=== PATIENT | male | born 1970 | race Caucasian/White ===

== ENCOUNTER 2016-09-24 12:06 | Emergency (ER) | payer MEDICAID ==
[2016-09-24 12:13] VITALS: RESP 16; TEMP 98.4; O2SAT 96
--- NOTE | 2016-09-24 13:40 | EDPHY ---
H & P Time Seen by Provider: 09/24/16 13:00 HPI/ROS: HPI Mechanical fall. Back pain. 46-year-old male on foot. Patient works at the [employer]. He reports he was at work last night. He reports that he slipped on a wet floor landing on his left buttock. He complains primarily of left-sided lower back pain. He did complain of some left shoulder pain but states that is better at this time. He denies any numbness or weakness in his lower extremities. No bowel or bladder incontinence. No history of malignancy. No fever. No abdominal pain. ROS: Constitutional: No fever, no chills. No weakness. Eyes: No discharge. No changes in vision. ENT: No sore throat. No nasal congestion or rhinorrhea. Respiratory: No cough. No shortness of breath. Cardiac: No chest pain, no palpitations. Gastrointestinal: No abdominal pain, no vomiting, no diarrhea. Genitourinary: No hematuria. No dysuria or increased frequency with urination. Musculoskeletal: As above. No neck pain. Denies other extremity pain the noted. Skin: No rashes. Neurological: No headache. No focal weakness or altered sensation. Past medical history: Hepatitis-C. Social history: Here by himself. Physical Exam: General Appearance: Alert, no distress. This patient is responding to questions appropriately and in full sentences. This patient appears well- hydrated and well-nourished. Eyes: Pupils equal and round no pallor or injection. No lid edema, erythema or injection. Lower back exam: No midline cervical, thoracic, lumbar, sacral tenderness on palpation. He has got some mild and vague tenderness over the left sacroiliac joint. No soft tissue swelling, no ecchymosis, no erythema or warmth associated. He has a negative same side and cross side straight leg raise test. He is neurologically intact in all myotomes in dermatomes of the bilateral lower extremities. He is vascularly intact in the lower extremities. Left shoulder exam: Ranges freely without any significant pain or impingement in all planes of motion and rotation. Left upper extremity is neurovascularly intact. Axillary nerve distribution is intact. Respiratory: There are no retractions, lungs are clear to auscultation with good air movement bilaterally. Gastrointestinal: Abdomen is soft and nontender, no masses, bowel sounds normal. No focal tenderness at Burney's point. No Wise sign. Neurological: Motor sensory function is grossly intact. Cranial nerves are normal. Gait is normal. Skin: Warm and dry, no rashes. Musculoskeletal: Neck is supple and nontender. Extremities are symmetrical. All joints range without pain or impingement. Psychiatric: No agitation. No depression. Database: EKG: Imaging: Procedures: Emergency department course: No red flags on examination. Ground level fall with left-sided lower back pain. Recommended treatment with ibuprofen, 600 mg every 6 hours for the next 3 days. Follow up with primary care physician for re-evaluation in 2-3 days. Return to emergency department precautions were discussed with him. All of his questions were answered. He was discharged in good condition. Differential Diagnosis: The differential diagnosis on this patient includes but is not limited to lumbar sacral strain on the left side. Epidural compression syndrome, acute radiculopathy/sciatica, AAA, malignancy, epidural abscess unlikely. This represents a partial list of diagnoses considered. These considerations are based on history, physical exam, past history, reassessment and diagnostic testing. Smoking Status: Current every day smoker Constitutional: Initial Vital Signs Temperature (C) 36.9 C 09/24/16 12:10 Heart Rate 90 09/24/16 12:10 Respiratory Rate 16 09/24/16 12:10 Blood Pressure 124/82 H 09/24/16 12:10 O2 Sat (%) 96 09/24/16 12:10 O2 Delivery Mode Room Air Allergies/Adverse Reactions: Penicillins Allergy (Unknown, Verified 09/24/16 12:09) Home Medications: Medication Instructions Recorded Amitriptyline HCl [Elavil 10 mg 10 mg PO 09/24/16 (*)] MDM/Departure - Depart Disposition: Home, Routine, Self-Care Clinical Impression: Fall from ground level, Low back pain Condition: Good Instructions: Low Back Strain (ED) Additional Instructions: Read and follow provided instructions. Follow-up with your primary care physician in 1-2 days for re-evaluation. Ibuprofen dosin mg every 6 hours with meals for the next 3 days only. Return to the emergency department for worsening pain, bowel or bladder incontinence, numbness or weakness in her lower extremities, persistent pain greater than 3 days or other serious concerns. Referrals: NONE *PRIMARY CARE P,. [Primary Care Provider] - As per Instructions [facility] [Outside] - As per Instructions
[2016-09-24] MEDS ORDERED: IBUPROFEN 200 MG TAB PO ONE (13:42)
[2016-09-24 14:04] VITALS: BP 127/78; PULSE 92
== END 2016-09-24 14:03 | disposition home or self-care (01) ==
DX: S39.92XA Unspecified injury of lower back, initial encounter (principal); F17.200 Nicotine dependence, unspecified, uncomplicated; W01.0XXA Fall on same level from slipping, tripping and stumbling without subsequent striking against object, initial encounter; Y92.511 Restaurant or cafe as the place of occurrence of the external cause; Y99.0 Civilian activity done for income or pay; Y93.89 Activity, other specified

== ENCOUNTER 2016-11-04 16:56 | Emergency (ER) | payer MEDICAID ==
--- NOTE | 2016-11-04 19:29 | EDPHY ---
H & P Stated Complaint: R scapula injury/pain from washing dishes at work HPI/ROS: CHIEF COMPLAINT: right scapula pain HISTORY OF PRESENT ILLNESS: Doing dishes earlier today when he felt a sudden onset of severe pain in the right scapula. This is primarily over the inferior angle of the scapula. It is worse with any kind of palpation, movement, retraction or protraction of the scapula. Improves with rest.Does not radiate. There is no chest pain or shortness of breath. No fall or trauma. No injury of any kind. No other associated complaints or modifying factors. PRIOR ORTHO INJURIES: None ESTABLISHED ORTHOPEDIST: none REVIEW OF SYSTEMS: Ten systems reviewed and are negative unless otherwise noted in the HPI EXAMINATION General Appearance: Alert, no distress Head: normocephalic, atraumatic Eyes: Pupils equal and round, no conjunctival pallor or injection ENT, Mouth: Mucous membranes moist Neck: Normal inspection Respiratory: No dyspnea or retractions. No distress Cardiovascular: Pulses normal throughout. Brisk cap refill Gastrointestinal: No distention Back: no midline tenderness. There is tenderness on the right scapula on the inferior angle. No crepitus or deformity. Pain is primarily over the subscapular and rhomboid muscles. Neurological: A&O, sensory symmetric, strength symmetric Skin: Warm and dry, no rash Extremities: Nontender, no pedal edema Psychiatric: Mood and affect normal MDM: 7:15 p.m. severe right scapular pain without any significant trauma. He does have point tenderness of the inferior angle of the scapula. I have ordered a x-ray to examine. I do not expect to find any fracture or abnormality. He has no chest complaints of any kind and no shortness of breath. 8:00 p.m. acute strain of the right thoracic region involving the subscapular versus rhomboid muscles. There is no bony abnormality on x-ray. He is neuro intact with full range of motion about the shoulder girdle. Discharge home with orthopedic follow-up, Flexeril and ibuprofen. Patient is comfortable with this plan. ED Precautions: Worsening pain. Erythema, edema, cyanosis, pallor, paresthesia or anesthesia. SUPERVISION:This patient was independently evaluated without the aide of supervising physician. Source: Patient - Personal History Current Tetanus Diphtheria and Acellular Pertussis (TDAP): Yes Tetanus Vaccine Date: 2011 - Medical/Surgical History Hx Asthma: No Hx Chronic Respiratory Disease: No Hx Diabetes: No Hx Cardiac Disease: No Hx Renal Disease: No Hx Cirrhosis: No Hx Alcoholism: No Hx HIV/AIDS: No Hx Splenectomy or Spleen Trauma: No Other PMH: none - Social History Smoking Status: Current every day smoker Constitutional: Initial Vital Signs Temperature (C) 98.4 F 11/04/16 17:05 Heart Rate 92 11/04/16 17:05 Respiratory Rate 16 11/04/16 17:05 Blood Pressure 116/72 11/04/16 17:05 O2 Sat (%) 97 11/04/16 17:05 O2 Delivery Mode Room Air Allergies/Adverse Reactions: Penicillins Allergy (Unknown, Verified 09/24/16 12:09) Home Medications: Medication Instructions Recorded Amitriptyline HCl [Elavil 10 mg 10 mg PO 09/24/16 (*)] Cyclobenzaprine [Flexeril 10 MG 10 mg PO TID PRN #15 tab 11/04/16 (*)] GABAPENTIN 400 mg PO 11/04/16 Ibuprofen 600 mg PO Q8 PRN #15 tablet 11/04/16 Departure - Departure Disposition: Home, Routine, Self-Care Clinical Impression: Thoracic myofascial strain Qualifiers: Encounter type: initial encounter Qualified Code(s): S29.019A - Strain of muscle and tendon of unspecified wall of thorax, initial encounter Condition: Good Instructions: Cyclobenzaprine (By mouth), Thoracic Back Strain (ED) Additional Instructions: Ibuprofen and Flexeril as prescribed as needed. Follow up with orthopedics or primary care for further care. Return to the ER for any chest pain or shortness of breath Referrals: NONE *PRIMARY CARE P,. [Primary Care Provider] - As per Instructions Jolene Zavala MD [Medical Doctor] - As per Instructions [facility],. [Clinic] - As per Instructions Prescriptions: Cyclobenzaprine [Flexeril 10 MG (*)] 10 mg PO TID PRN #15 tab PRN Reason: Spasms Ibuprofen 600 mg PO Q8 PRN #15 tablet PRN Reason: Pain, Mild
[2016-11-04] MEDS ORDERED: CYCLOBENZAPRINE 10MG PREPACK#3 BTL TAKEHOME ONE (19:52)
[2016-11-04] MEDS ORDERED: IBUPROFEN 600 MG TAB PO ONE (19:52)
[2016-11-04 20:07] VITALS: BP 114/71; PULSE 82; RESP 12; TEMP 98.6; O2SAT 95
== END 2016-11-04 20:06 | disposition home or self-care (01) ==
DX: S29.019A Strain of muscle and tendon of unspecified wall of thorax, initial encounter (principal); F17.200 Nicotine dependence, unspecified, uncomplicated; X58.XXXA Exposure to other specified factors, initial encounter; Y93.89 Activity, other specified

== ENCOUNTER 2016-11-26 15:28 | Emergency (ER) | payer MEDICAID ==
[2016-11-26 15:42] VITALS: RESP 16; O2SAT 96
[2016-11-26] MEDS ORDERED: VANCOMYCIN HCL/NORMAL SALINE 250 ML IV ONE (17:03)
--- NOTE | 2016-11-26 17:36 | EDPHY ---
H & P Stated Complaint: Both ankles/legs hurt;no injury;stands a lot at work;needs pain med Time Seen by Provider: 11/26/16 16:38 HPI/ROS: Chief complaint: Leg pain and swelling HPI: 46-year-old male presenting with worsening left leg pain greater than right leg pain, swelling and redness. The patient has a history of prior ankle injuries in the past has not had any problems recently. Patient states that he does to having increasing aching and notice redness on his legs today. No fevers or chills. The no numbness or tingling. No weakness. No calf pain. Is allergic to penicillin has taken Keflex in the past. ROS: 10 point Review of Systems is negative except as noted in the HPI. Past medical history: Negative Medications: None Allergies: No known drug allergies Physical exam: Gen: Awake, Alert, No Distress HEENT: Nose: no rhinorrhea Eyes: PERRLA, EOMI Mouth: Moist mucosa Neck: Supple, no JVD Ext: Left ankle is edematous with erythema with streaking up the medial calf. It is warm to touch. He has no calf tenderness. He has 2+ edema which is not pitting. Right ankle has mild edema with just a very tiny amount of pale erythema without tenderness or warmth. Skin: no rash Neuro: CN II-XII intact, Sensation grossly intact, Strength 5/5 in bilateral upper and lower extremities - Personal History Current Tetanus Diphtheria and Acellular Pertussis (TDAP): Yes Tetanus Vaccine Date: 2011 - Medical/Surgical History Hx Asthma: No Hx Chronic Respiratory Disease: No Hx Diabetes: No Hx Cardiac Disease: No Hx Renal Disease: No Hx Cirrhosis: No Hx Alcoholism: No Hx HIV/AIDS: No Hx Splenectomy or Spleen Trauma: No Other PMH: frequent injuries - Social History Smoking Status: Current every day smoker Constitutional: Initial Vital Signs Temperature (C) 36.6 C 11/26/16 15:35 Heart Rate 79 11/26/16 15:35 Respiratory Rate 16 11/26/16 15:35 Blood Pressure 129/77 H 11/26/16 15:35 O2 Sat (%) 96 11/26/16 15:35 O2 Delivery Mode Room Air Allergies/Adverse Reactions: Penicillins Allergy (Unknown, Verified 11/26/16 15:37) Home Medications: Medication Instructions Recorded Cephalexin [Keflex (*)] 500 mg PO Q6H #40 cap 11/26/16 Sulfamethox/Tmp 800/160 mg 1 tab PO BID #20 tab 11/26/16 [Bactrim Ds] Medical Decision Making ED Course/Re-evaluation: 46-year-old male with left calf cellulitis. His calf is nontender. There are no findings suggestive of DVT at this time. He has been given a dose of IV vancomycin. Will discharge on Keflex and Bactrim. He will return in 12 hours for recheck. If improving at that time he can continue on oral antibiotics. It is worse will require repeat IV antibiotics. Departure - Departure Disposition: Home, Routine, Self-Care Clinical Impression: Cellulitis Condition: Good Instructions: Cellulitis (ED) Additional Instructions: Return to the emergency department 12 hours for recheck if the redness continues to spread. Please take her full course of antibiotics. Return sooner for fevers, chills, increasing pain, or any other concerns. If the redness is improving follow up with primary care in 2-3 days. Referrals: NONE *PRIMARY CARE P,. [Primary Care Provider] - As per Instructions Prescriptions: Cephalexin [Keflex (*)] 500 mg PO Q6H #40 cap Sulfamethox/Tmp 800/160 mg [Bactrim Ds] 1 tab PO BID #20 tab
[2016-11-26 18:50] VITALS: BP 125/82; PULSE 75; TEMP 97.7
== END 2016-11-26 18:50 | disposition home or self-care (01) ==
DX: L03.116 Cellulitis of left lower limb (principal); F17.200 Nicotine dependence, unspecified, uncomplicated; L03.115 Cellulitis of right lower limb
CPT/HCPCS: 96365; J3370

== ENCOUNTER 2016-12-04 16:06 | Emergency (ER) | payer MEDICAID ==
--- NOTE | 2016-12-04 16:36 | EDPHY ---
H & P Time Seen by Provider: 12/04/16 16:29 HPI/ROS: CHIEF COMPLAINT: Recheck lower extremity erythema HISTORY OF PRESENT ILLNESS: 46-year-old homeless male with no thromboembolic disorder history, seen the ER 8 days ago, diagnosed with cellulitis, placed on Bactrim and Keflex after receiving dose of IV vancomycin and told to return 12 hours for recheck. He did not return for recheck at the does need time. He notes that overall the erythema seems to be resolving although he has continued soft tissue swelling. Patient states that the erythema and warmth are significantly improved and have not worsened. Denies inguinal adenopathy, pain , swelling. 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 He denies: Paresthesia, sensory or motor deficit, dyspnea, chest pain, back pain, abdominal pain. PHYSICAL EXAM (Prior to examination, patient consented to physical exam, hands were washed and my usual and customary physical exam procedures followed) 1) GENERAL: Well-developed, well-nourished, alert and oriented. Appears to be in no acute distress. 2) HEAD: Normocephalic 3) HEENT: sclera anicteric 4) LUNGS: Breathing comfortably. 5) SKIN: faint erythema bilateral ankle 6) MUSCULOSKELETAL: bilateral lower extremities have soft compartments. DP PT pulses present and brisk. There is faint erythema and warmth noted to the bilateral ankles. There is no lymphangitic streaking. Dorsiflexion plantar flexion elicit no pain . No crepitus 7) NEUROLOGIC: Full sensation distally. DIFFERENTIAL DIAGNOSIS: in no particular include but limited to cellulitis, compartment syndrome, DVT, necrotizing fasciitis Smoking Status: Heavy smoker Constitutional: Initial Vital Signs Temperature (C) 36.8 C 12/04/16 16:09 Heart Rate 102 H 12/04/16 16:09 Respiratory Rate 16 12/04/16 16:09 Blood Pressure 145/88 H 12/04/16 16:09 O2 Sat (%) 96 12/04/16 16:09 O2 Delivery Mode Room Air Allergies/Adverse Reactions: Penicillins Allergy (Unknown, Verified 12/04/16 16:13) Home Medications: Medication Instructions Recorded Cephalexin [Keflex (*)] 500 mg PO Q6H #40 cap 11/26/16 Sulfamethox/Tmp 800/160 mg 1 tab PO BID #20 tab 11/26/16 [Bactrim Ds] MDM/Departure - MDM Diagnostics: 5:20 p.m.: Bilateral lower extremity ultrasound is negative for DVT per staff radiologist interpretation with images reviewed by myself. ED Course/Re-evaluation: This patient has been re-evaluated with serial exams, most recently at 5:26 p.m.. He does have resolving cellulitis with no evidence of DVT on ultrasonography. Doubt necrotizing fasciitis. Doubt compartment syndrome. 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 Recommend elevation of the extremities whenever possible. At this time I do not think that hospitalization or IV antibiotics are currently indicated. Recommend continue antibiotics until finished. He is agreeable this plan. [facility] - Depart Disposition: Home, Routine, Self-Care Clinical Impression: Cellulitis, leg Qualifiers: Laterality: right Qualified Code(s): L03.115 - Cellulitis of right lower limb Condition: Good Instructions: Cellulitis (ED) Additional Instructions: Return to the ER if you develop new or worsening redness, if you develop fever chills, or any other symptoms that concern you. Take your antibiotics as scheduled until finished Referrals: [facility],. [Clinic] - 1-2 days without fail
[2016-12-04 17:34] VITALS: BP 140/89; PULSE 100; RESP 18; TEMP 99; O2SAT 99
== END 2016-12-04 17:33 | disposition home or self-care (01) ==
DX: L03.115 Cellulitis of right lower limb (principal); F17.200 Nicotine dependence, unspecified, uncomplicated

== ENCOUNTER 2016-12-22 17:26 | Emergency (ER) | payer MEDICAID ==
[2016-12-22 17:36] VITALS: O2SAT 94
[2016-12-22] MEDS ORDERED: LETS SOLN TOPICAL 1 EA SYR TP ONE (18:03)
--- NOTE | 2016-12-22 18:17 | EDPHY ---
H & P Smoking Status: Heavy smoker Time Seen by Provider: 12/22/16 17:38 HPI/ROS: This is a 46-year-old male presenting to the emergency department states falling off of skateboard 30 minutes to an hour prior to arrival. He states hit the curb flipped over face planted on cement, denies any LOC. Patient does report using heroin yesterday and today, ambulatory to room without gait disturbance. Patient complaining of headache laceration to face and mouth. Tetanus vaccine up-to-date 5 years ago per patient REVIEW OF SYSTEMS: Constitutional: No fever no chills Eyes: No blurred vision ENT: Laceration to bridge nose with abrasions, laceration to the inside of mouth Respiratory: No short of breath Cardiac: No chest pain Gastrointestinal: No abdominal pain no nausea vomiting Musculoskeletal: No joint pain Skin: Abrasions to face Neurological: Headache, with abrasion to forehead (Jessica Sotelo) Physical Exam: CONSTITUTIONAL: patient appeared well nourished, non-ill appearing and normally developed. No acute distress. Vital signs as documented. HEENT: Large Contusion noted to forehead with abrasion. Pupils pinpoint, equal round reactive to light. EOMI. Bridge of nose abrasions 1 cm avulsion laceration. Oropharynx normal. Blood noted in mouth, 2.5cm laceration left lower gum line. Abrasion noted Chin NECK: Supple, positive cervical spine tenderness noted on palpate, range of motion with pain RESP: Non-labored resp effort, airway patent, CTAB CARDIAC: RRR w/o murmur, magalie. Normal S1/S2 GI: Abd soft NTTP no bruising or abrasions noted NEURO: Awake, slow to answer questions oriented x3, CNII-XII intact. EXTREMITIES: Abrasion noted to his left shoulder FROM without pain or difficulty. Positive cms intact SKIN: Multiple abrasions noted to face and left shoulder PSYCH: Flat affect, calm, no distress (Jessica Sotelo) Constitutional: Initial Vital Signs Temperature (C) 36.6 C 12/22/16 17:33 Heart Rate 94 12/22/16 17:33 Respiratory Rate 20 12/22/16 17:33 Blood Pressure 134/91 H 12/22/16 17:33 O2 Sat (%) 94 12/22/16 17:33 O2 Delivery Mode Room Air Allergies/Adverse Reactions: Penicillins Allergy (Unknown, Verified 12/22/16 17:33) Home Medications: Medication Instructions Recorded Amoxicillin/Clavulanate Pot 875 mg PO BID #14 tab 12/22/16 [Augmentin 875 MG TAB (*)] Elavil 12/22/16 GABAPENTIN 12/22/16 Medical Decision Making Procedures: Procedure: Laceration repair. Verbal consent was obtained from the patient 1 cm laceration the bridge of nose, 2.5 cm to left lateral lower gum. 0.5% bupivacaine total 5 mL used for local infiltrate.The wounds were irrigated. There were no deep structures involved. Nasal wound repaired using 5-0 Prolene #4 sutures, gum laceration repair using 6- 0 chromic gut #8 sutures placed. The procedure was performed by myself. A dressing was applied by our EMT. Patient tolerated procedure ( Jessica Sotelo) ED Course/Re-evaluation: Discussed plan of care with patient: CT head and cervical spine, topical let the wound for irrigation irrigation of abrasions and lacerations. 1628: Spoke with Dr. Roach CT negative skull fracture or SAH positive frontal hematoma. negative acute findings on cervical spine, positive for acute nasal fracture 1700: Discussed x-ray findings with patient, discussed all wound repairs. Discharge home---> stable, discussed discharge instructions with patient (Jessica Sotelo) Differential Diagnosis: Differential diagnosis considered but not limited to SAH, skull fracture jaw fracture (Jessica Sotelo) Other Provider: The patient was evaluated and managed by the Physician Steel Pickler/ Nurse Practitioner. My co-signature indicates that I have reviewed this chart and I agree with the findings and plan of care as documented. I am the secondary supervising physician. (Risa Adorno) - Data Points Medications Given: Discontinued Medications Amoxicillin/Clavulanate Potassium (Augmentin 875mg) 875 mg PO EDNOW ONE PRN Reason: Protocol Stop: 12/22/16 19:36 Last Admin: 12/22/16 19:40 Dose: 875 mg Tetracaine/Epinephrine/Lidocaine (Lets Soln Topical) 1 ea TP EDNOW ONE Stop: 12/22/16 18:04 Last Admin: 12/22/16 18:26 Dose: 1 ea Departure - Departure Disposition: Home, Routine, Self-Care Clinical Impression: Hematoma and contusion, Abrasions of multiple sites Nasal bone fx-open Qualifiers: Encounter type: initial encounter Qualified Code(s): S02.2XXB - Fracture of nasal bones, initial encounter for open fracture Condition: Good Instructions: Nasal Fracture (ED), Contusion in Adults (ED), Abrasion (ED), Hematoma (ED) Additional Instructions: 1. Keep all wounds clean and dry 2. Take all antibiotics as prescribed 3. Ice pack to hematoma 15 minutes every hour as needed for swelling 4. Return in 5-7 days for suture removal 5. Follow up with primary care physician within the following week Referrals: NONE *PRIMARY CARE P,. [Primary Care Provider] - As per Instructions [facility],. [Clinic] - As per Instructions Prescriptions: Amoxicillin/Clavulanate Pot [Augmentin 875 MG TAB (*)] 875 mg PO BID #14 tab
[2016-12-22] MEDS ORDERED: AMOXICILLIN/CLAVULANATE POT 875/125 MG TAB PO ONE (19:35)
[2016-12-22 20:14] VITALS: BP 122/88; PULSE 76; RESP 12; TEMP 98.1
== END 2016-12-22 20:14 | disposition home or self-care (01) ==
PROC: 09QKXZZ Repair Nasal Mucosa and Soft Tissue, External Approach (ICD-10-PCS; principal; 2016-12-22)
DX: S02.2XXB Fracture of nasal bones, initial encounter for open fracture (principal); S00.83XA Contusion of other part of head, initial encounter; S00.81XA Abrasion of other part of head, initial encounter; S40.212A Abrasion of left shoulder, initial encounter; F17.200 Nicotine dependence, unspecified, uncomplicated; V00.131A Fall from skateboard, initial encounter; Y99.8 Other external cause status; Y93.51 Activity, roller skating (inline) and skateboarding

== ENCOUNTER 2017-02-12 22:29 | Inpatient (IN) | payer MEDICAID ==
--- NOTE | 2017-02-12 22:59 | EDPHY ---
H & P Stated Complaint: fall fm skateboard ~6' onto R hip ~2d ago, now unable to bear weight - Personal History Current Tetanus/Diphtheria Vaccine: Yes Current Tetanus Diphtheria and Acellular Pertussis (TDAP): Yes Tetanus Vaccine Date: 2011 - Medical/Surgical History Hx Asthma: No Hx Chronic Respiratory Disease: No Hx Diabetes: No Hx Cardiac Disease: No Hx Renal Disease: No Hx Cirrhosis: No Hx Alcoholism: No Hx HIV/AIDS: No Hx Splenectomy or Spleen Trauma: No Other PMH: ORIF L ankle - Social History Smoking Status: Heavy smoker Time Seen by Provider: 02/12/17 22:49 HPI/ROS: CHIEF COMPLAINT: "My right hip hurts" HISTORY OF PRESENT ILLNESS: 46-year-old homeless male arrives via private vehicle stating that 2 days ago he was riding his skateboard and fell onto his right hip. He was initially able to bear weight but notes that in the past 24 hours he has been unable to bear weight. He notes soft tissue swelling. Denies genitalia injury. Denies fever chills. Denies shortening or malalignment. Denies back pain. Denies head injury. Denies neck pain injury. Denies nausea or vomiting. PRIMARY CARE PROVIDER: none REVIEW OF SYSTEMS: A ten point review of systems was performed and is negative with the exception of the items mentioned in the HPI PAST MEDICAL/SURGICAL HISTORY: out-of-date tetanus.no anticoagulant use, SOCIAL HISTORY: Homeless PHYSICAL EXAM 1) GENERAL: Well-developed, well-nourished, alert and oriented. Appears uncomfortable. Answering questions appropriately. 2) HEAD: Normocephalic, atraumatic 3) HEENT: Pupils equal, round, reactive to light bilaterally. Negative Horners. Nasopharynx, oropharynx, clear. No deformity or angulation of nose. No septal hematoma. No rhinorrhea. No oral trauma. Ears bilaterally with normal tympanic membranes. No hemotympanum. No fluid or blood in the external auditory canal. No raccoon eyes. No Mohamud sign. 4) NECK: Posterior cervical spine is nontender, no stepoff, no effusion. Full range of motion which does not elicit any midline cervical spine pain, no posterior midline tenderness, no step-off. 5) LUNGS: Clear to auscultation bilaterally, no wheezes, no rhonchi, no retractions. No obvious signs of trauma. No chest wall pain. No flaring, no grunting. Moving symmetrically. No crepitus. 6) HEART: Regular rate and rhythm, 7) ABDOMEN: No guarding, no rebound, no focal tenderness, no peritoneal signs, no signs of trauma, no ecchymosis 8) MUSCULOSKELETAL: Right lower extremity: Right lateral hip extending distally he has diffuse erythema, induration region, increased warmth, with tenderness along the lateral aspect . no crepitus. Distal DP PT pulses are present and brisk with brisk capillary refill. 9) BACK: No midline vertebral tenderness, no fluctuance, no step-off, no obvious trauma, no visual or palpable abnormality. 10) SKIN: No laceration. No abrasion 11) : There is no involvement of the scrotum and no evidence of Sunshine's gangrene. DIFFERENTIAL DIAGNOSIS: in no particular order including but not limited to fracture, dislocation, compartment syndrome, hematoma, cellulitis, septic greater trochanteric bursitis (Ashley Hutton Shruthi) Constitutional: Initial Vital Signs Temperature (C) 37.9 C 02/12/17 22:38 Heart Rate 102 H 02/12/17 22:38 Respiratory Rate 16 02/12/17 22:38 Blood Pressure 110/62 02/12/17 22:38 O2 Sat (%) 95 02/12/17 22:38 O2 Delivery Mode Room Air Allergies/Adverse Reactions: Penicillins Allergy (Unknown, Verified 12/22/16 17:33) Home Medications: Medication Instructions Recorded Elavil 12/22/16 GABAPENTIN 12/22/16 Medical Decision Making - Diagnostics Imaging Results: Xray of the right hip and pelvis interpreted by myself: no definitive acute osseous abnormality (Ashley Hutton Shruthi) ED Course/Re-evaluation: 11:03 p.m.: Patient was also seen exam by Dr. Jose Iyer. Of concern in this patient at this time is possibility of fracture, dislocation, cellulitis, necrotizing fasciitis. Doubt compartment syndrome. Will obtain blood cultures, start patient on broad-spectrum vancomycin and Invanz, obtain x- ray and possible MRI and plan for likely admission. 11:38 p.m.: Patient has a serum sodium of 124. His IV fluids will be stopped. re-evaluation of patient. 11:45 p.m.: Phone consultation with hospitalist Dr. Martin, patient will be admitted. MRI of the femur will be obtained. (Ashley Hutton) I saw this patient at 11:00 p.m. with physician ob gyn physician assistant José Miguel Hutton. Concern for cellulitis and possible necrotizing fasciitis. Compartment syndrome less likely. Will evaluate for traumatic injury with x-rays initially. 11:15 p.m., x-rays reviewed. No gas. No evidence of fracture. Broad-spectrum antibiotics including IV vancomycin and IV Invanz started in the emergency department. Patient has an allergy to penicillins. We will obtain an MRI of the right femur to assess for possible necrotizing fasciitis as well as compartment syndrome. Patient to initially be admitted to the hospitalist service. After admission to the floor, I was informed the MRI of this patient's right femur was significant for necrotizing fasciitis. Discussed case with general surgeon who saw the patient on the floor. Plan will be to transfer this patient down to [facility] for surgical management. (Jose Iyer) - Data Points Laboratory Results: Laboratory Results 02/12/17 23:05 02/12/17 23:05 02/12/17 02/12/17 23:05 23:05 WBC 12.34 10^3/uL H 10^3/uL (3.80-9.50) RBC 3.96 10^6/uL L 10^6/uL (4.40-6.38) Hgb 12.1 g/dL L g/dL (13.7-17.5) Hct 34.4 % L % (40.0-51.0) MCV 86.9 fL fL (81.5-99.8) MCH 30.6 pg pg (27.9-34.1) MCHC 35.2 g/dL g/dL (32.4-36.7) RDW 13.2 % % (11.5-15.2) Plt Count 321 10^3/uL 10^3/uL (150-400) MPV 9.6 fL fL (8.7-11.7) Neut % (Auto) Not Reported Lymph % (Auto) Not Reported [place] % (Auto) Not Reported Eos % (Auto) Not Reported Baso % (Auto) Not Reported Nucleat RBC Rel Count 0.0 % % (0.0-0.2) Absolute Neuts (auto) Not Reported Absolute Lymphs (auto) Not Reported Absolute Monos (auto) Not Reported Absolute Eos (auto) Not Reported Absolute Basos (auto) Not Reported Absolute Nucleated RBC 0.00 10^3/uL 10^3/uL (0-0.01) Immature Gran % Not Reported Seg Neutrophils % 40 % % Band Neutrophils % 33 % % Lymphocytes % 11 % % Monocytes % 16 % % Immature Gran # Not Reported Absolute Seg Neuts 4.94 10^/uL 10^/uL (1.70-6.50) Absolute Band Neuts 4.07 10^3/uL H 10^3/uL (0.00-0.70) Absolute Lymphocytes 1.36 10^3/uL 10^3/uL (1.00-3.00) Absolute Monocytes 1.97 10^3/uL H 10^3/uL (0.30-0.80) RBC/WBC/PLT Morphology NORMAL (NORMAL) Dohle Bodies PRESENT H Platelet Estimate ADEQUATE (ADEQ) Smear Review By Pending Sodium 124 mEq/L L mEq/L (134-144) Potassium 4.5 mEq/L mEq/L (3.5-5.2) Chloride 93 mEq/L L mEq/L (97-110) Carbon Dioxide 23 mEq/l mEq/l (22-31) Anion Gap 8 mEq/L mEq/L (8-16) BUN 18 mg/dL mg/dL (7-23) Creatinine 1.0 mg/dL mg/dL (0.7-1.3) Estimated GFR > 60 Glucose 127 mg/dL H mg/dL (70-100) Calcium 8.6 mg/dL mg/dL (8.5-10.4) Medications Given: Discontinued Medications Diphtheria/Tetanus/Acell Pertussis (Boostrix) 0.5 ml IM .ONCE ONE Stop: 02/12/17 23:01 Last Admin: 02/12/17 23:11 Dose: 0.5 ml Hydromorphone HCl (Dilaudid) 1 mg IVP EDNOW ONE Stop: 02/12/17 23:13 Last Admin: 02/12/17 23:15 Dose: 1 mg Ertapenem 1 gm/ Sodium (Chloride) 100 mls @ 200 mls/hr IV EDNOW ONE PRN Reason: Protocol Stop: 02/12/17 23:31 Last Admin: 02/12/17 23:45 Dose: 100 mls Vancomycin/Sodium Chloride (Vancomycin 1 Gm (Premix)) 250 mls @ 250 mls/hr IV EDNOW ONE PRN Reason: Protocol Stop: 02/13/17 00:01 Last Admin: 02/13/17 00:40 Dose: 250 mls Sodium Chloride (Ns) 1,000 mls @ 0 mls/hr IV ONCE ONE PRN Reason: Wide Open Stop: 02/12/17 23:13 Last Admin: 02/12/17 23:15 Dose: 1,000 mls Sodium Chloride (Ns) 1,000 mls @ 3,000 mls/hr IV ONCE ONE Stop: 02/13/17 00:01 Last Admin: 02/13/17 00:00 Dose: 1,000 mls Ondansetron HCl (Zofran) 4 mg IVP EDNOW ONE Stop: 02/12/17 23:13 Last Admin: 02/12/17 23:15 Dose: 4 mg Departure - Departure Disposition: [facility] Inpatient Acute Clinical Impression: Cellulitis of right thigh, Hyponatremia Condition: Fair
[2017-02-12] MEDS ORDERED: TDAP ADULT 0.5 ML INJ (BOOSTRIX) IM ONE (23:00)
[2017-02-12] MEDS ORDERED: ERTAPENEM 1 GM in NS 100 ML IV ONE (23:02)
[2017-02-12] MEDS ORDERED: VANCOMYCIN HCL/NORMAL SALINE 250 ML IV ONE (23:02)
[2017-02-12] MEDS ORDERED: ONDANSETRON 4 MG/2 ML VIAL IVP ONE (23:12)
[2017-02-12] MEDS ORDERED: NS 1,000 ML IV ONE ×2 (23:12→23:42)
[2017-02-12] MEDS ORDERED: HYDROmorphONE/DILAUDID 1 MG/ML SYR IVP ONE (23:12)
[2017-02-12 23:20] LABS: ADD MORPH? NO; ADD SCAN? YES; ATYPICAL LYMPHOCYTE FLAG 0 (0-99); FRAGMENT RBC FLAG 0 (0-99); HEMATOCRIT 34.4 % (40.0-51.0); HEMOGLOBIN 12.1 g/dL (13.7-17.5); LIPEMIA HEMOLYSIS FLAG 90 (0-99); MEAN CELL HEMOGLOBIN 30.6 pg (27.9-34.1); MEAN CELL HEMOGLOBIN CONCENTR. 35.2 g/dL (32.4-36.7); MEAN CELL VOLUME 86.9 fL (81.5-99.8); MEAN PLATELET VOLUME 9.6 fL (8.7-11.7); PLATELET CLUMPS FLAG 0 (0-99); PLATELET COUNT 321 10^3/uL (150-400); RED BLOOD CELL COUNT 3.96 10^6/uL (4.40-6.38); RED CELL DISTRIBUTION WIDTH 13.2 % (11.5-15.2)
[2017-02-12 23:32] LABS: ANION GAP 8 mEq/L (8-16); CALCIUM 8.6 mg/dL (8.5-10.4); CARBON DIOXIDE 23 mEq/l (22-31); CHLORIDE 93 mEq/L (97-110); GLOMERULAR FILTRATION RATE > 60; GLUCOSE 127 mg/dL (70-100); POTASSIUM 4.5 mEq/L (3.5-5.2); SODIUM 124 mEq/L (134-144)
[2017-02-12 23:38] LABS: LEFT SHIFT FLG 300 (0-99)
[2017-02-12] MEDS ORDERED: ONDANSETRON DISINTEGRATING 4 MG TAB PO PRN (23:42)
[2017-02-12] MEDS ORDERED: IBUPROFEN 200 MG TAB PO PRN (23:42)
[2017-02-12] MEDS ORDERED: ONDANSETRON 4 MG/2 ML VIAL IVP PRN (23:42)
[2017-02-12] MEDS ORDERED: ACETAMINOPHEN 325 MG TAB PO PRN (23:42)
[2017-02-12] MEDS ORDERED: HYDROmorphONE/DILAUDID 1 MG/ML SYR IVP PRN (23:42)
[2017-02-12] MEDS ORDERED: ACETAMINOPHEN 325 MG TAB ONE (23:47)
[2017-02-12 23:56] LABS: ADD DIFF? YES; SCAN POSITIVE
[2017-02-13 00:01] LABS: PLATELET ESTIMATE ADEQUATE (ADEQ)
[2017-02-13] MEDS ORDERED: GADOBUTROL 10 ML VIAL IVP ONE (01:22)
--- NOTE | 2017-02-13 01:41 | GHP ---
[f rep st] HISTORY AND PHYSICAL DATE OF ADMISSION: 02/12/2017 CHIEF COMPLAINT: Right leg pain. HISTORY OF PRESENT ILLNESS: A 46-year-old homeless male with limited past medical history, who presents with complaints of right leg pain. Patient reports falling onto his right hip approximately 2 days ago while riding a skateboard. Since that time has had difficulty weightbearing secondary to discomfort. It has become on bearable over the course of the last 24 hours. He reports that it hurts so much he could not even look to see if there were any bruises or changes so is unaware of any erythema to his skin. Patient endorses subjective fevers and chills. Denies any chest pain, shortness of breath, headache, vision changes, or palpitations. Denies any diarrhea, nausea , or vomiting. Denies any blood in his urine or scrotal genital pain. increasing pain with ambulation, as well as passive range of motion. PAST MEDICAL HISTORY: Patient says none. SOCIAL HISTORY: Denies tobacco and alcohol. Does smoke marijuana daily. Denies illicit drugs. FAMILY HISTORY: Negative for heart disease. REVIEW OF SYSTEMS: A 10-point review of systems is negative with the exception of that reported in the HPI. PHYSICAL EXAMINATION: VITAL SIGNS: Blood pressure 123/68, heart rate 102, respiratory rate 16, 95% on room air, 37.9. GENERAL: This is a young healthy- appearing male in distress. HEENT: Notable for dry mucous membranes and poor dentition. Eye exam is negative for any icterus. CARDIAC: Patient is tachycardic. PULMONARY: Good respiratory effort. Clear to auscultation bilaterally. GASTROINTESTINAL: Positive bowel sounds. Abdomen is soft and nontender. MUSCULOSKELETAL: Patient has marked edema of the right thigh with erythema extending circumferentially from the groin down to just above the knee. Patient is markedly tender to palpation. Even moving the gown around his thigh is uncomfortable for him. : Genitalia appear normal. Patient has marked pain with even minimal passive range of motion of that. Pulses are normal bilaterally. SKIN: There are no other rashes appreciated beyond the cellulitis of the right thigh. NEUROLOGIC: He seems somnolent on examination, but is alert and oriented x3. PSYCHIATRIC: He is cooperative. LABORATORY DATA: White count is 12.3, hematocrit 34.4, platelets of 321. Sodium 124, BUN 18, creatinine 1.0, glucose of 127. Hip x-ray, which I personally reviewed and interpreted, does not show subcutaneous air. ASSESSMENT AND PLAN: A 46-year-old male presenting with right thigh cellulitis. 1. Acute cellulitis of the right thigh. Exam is certainly concerning, as well as the concurrent leukocytosis and hyponatremia. Although the LRINEC score is not greater than 6, agree with obtaining an MRI. Patient has received broad spectrum antibiotics including vancomycin and Invanz from the emergency department. Will follow imaging. Continuing these antibiotics for now. Blood cultures have been obtained. Will treat with IV oral pain medications including ibuprofen. 2. Hyponatremia. Hopeful this is related to hypovolemia. Will give the patient fluid bolus and recheck in the morning. 3. Sepsis. Patient is presenting tachycardic with leukocytosis. Source presumed cellulitic. Again treating with very broad-spectrum antibiotics, as the patient's exam is very concerning. Will obtain MRI imaging to better understand the depth of the skin infection and whether the surgeons need to be involved. 4. Normocytic anemia. This appears chronic for this patient. 5. Prophylaxis with Lovenox. 6. Diet. Regular. DISPOSITION: I expect greater than 2 midnights as patient is presenting with a bad cellulitis and sepsis requiring IV antibiotics, IV fluids, and close monitoring. I discussed the case with the emergency room physician. Patient will be triaged to the medical-surgical floor for care. /[id number]/MODL MTDD
[2017-02-13 02:58] VITALS: BP 104/61; PULSE 93; RESP 16; TEMP 100; O2SAT 92
--- NOTE | 2017-02-13 04:41 | PDCONSULT ---
[facility] Tech Note: Surgical consultation note: Seen at the request of Dr. Beatriz Martin from Internal Medicine History: Gamaliel Burr is a 46-year-old gentleman who fell while riding his skateboard 2 days ago. Subsequently started having pain and swelling of his right upper outer thigh which is progressed rapidly over the last several hours. He presented to the emergency room where workup was performed demonstrating cellulitis with possible hematoma of the thigh. White blood cell count initially 12.4 will left shift will be importantly the patient is hyponatremic sodium 124 BUN 18. MRI was subsequently performed consistent with circumferential right thigh fasciitis. Past Medical history patient denies Past surgical history ankle ORIF Review of systems significant for his right leg pain all others reviewed and are negative Medications: None Allergy/AdvReac Type Severity Reaction Status Date / Time Penicillins Allergy Unknown Verified 12/22/16 17:33 Family history: Noncontributory Temp Pulse Resp BP Pulse Ox 37.7 C 102 16 104/61 92 02/13/17 02:57 02/13/17 02:57 02/13/17 02:57 02/13/17 02:57 02/13/17 02:57 The patient is shows received Dilaudid, is more comfortable than he had been previously. He has moderate to severe distress with palpation of his right lower extremity Sclera are anicteric pupils are equal 3 mm Regular rate and rhythm Clear to auscultation Abdomen soft nontender nondistended no hepatosplenomegaly 2+ ordered 2+ femoral dorsalis pedis pulses Bilateral upper extremity normal, left lower extremity normal Right lower extremity with lateral edema extending from the pubic tubercle laterally to posterior superior iliac spine and inferiorly circumferentially down to below the knee Extent of cellulitis and soft tissue swelling goes beyond previously marked areas from the emergency room Laboratory Results 02/12/17 23:05 02/12/17 23:05 02/12/17 02/12/17 23:05 23:05 WBC 12.34 10^3/uL H 10^3/uL (3.80-9.50) RBC 3.96 10^6/uL L 10^6/uL (4.40-6.38) Hgb 12.1 g/dL L g/dL (13.7-17.5) Hct 34.4 % L % (40.0-51.0) MCV 86.9 fL fL (81.5-99.8) MCH 30.6 pg pg (27.9-34.1) MCHC 35.2 g/dL g/dL (32.4-36.7) RDW 13.2 % % (11.5-15.2) Plt Count 321 10^3/uL 10^3/uL (150-400) MPV 9.6 fL fL (8.7-11.7) Neut % (Auto) Not Reported Lymph % (Auto) Not Reported [place] % (Auto) Not Reported Eos % (Auto) Not Reported Baso % (Auto) Not Reported Nucleat RBC Rel Count 0.0 % % (0.0-0.2) Absolute Neuts (auto) Not Reported Absolute Lymphs (auto) Not Reported Absolute Monos (auto) Not Reported Absolute Eos (auto) Not Reported Absolute Basos (auto) Not Reported Absolute Nucleated RBC 0.00 10^3/uL 10^3/uL (0-0.01) Immature Gran % Not Reported Seg Neutrophils % 40 % % Band Neutrophils % 33 % % Lymphocytes % 11 % % Monocytes % 16 % % Immature Gran # Not Reported Absolute Seg Neuts 4.94 10^/uL 10^/uL (1.70-6.50) Absolute Band Neuts 4.07 10^3/uL H 10^3/uL (0.00-0.70) Absolute Lymphocytes 1.36 10^3/uL 10^3/uL (1.00-3.00) Absolute Monocytes 1.97 10^3/uL H 10^3/uL (0.30-0.80) RBC/WBC/PLT Morphology NORMAL (NORMAL) Dohle Bodies PRESENT H Platelet Estimate ADEQUATE (ADEQ) Smear Review By Pending Sodium 124 mEq/L L mEq/L (134-144) Potassium 4.5 mEq/L mEq/L (3.5-5.2) Chloride 93 mEq/L L mEq/L (97-110) Carbon Dioxide 23 mEq/l mEq/l (22-31) Anion Gap 8 mEq/L mEq/L (8-16) BUN 18 mg/dL mg/dL (7-23) Creatinine 1.0 mg/dL mg/dL (0.7-1.3) Estimated GFR > 60 Glucose 127 mg/dL H mg/dL (70-100) Calcium 8.6 mg/dL mg/dL (8.5-10.4) Blood cultures are pending Imaging studies are verbally relayed from Dr. Prieto and reviewed personally on [place] system consistent with necrotizing fasciitis circumferentially of will right lower extremity Impression necrotizing fasciitis Although his white blood cell count is below 14 his laboratory risk of necrotizing fasciitis is high. Clinical suspicion of necrotizing fasciitis is high and MRI is consistent with this diagnosis Recommendation would be aggressive debridement surgically. He has been given vancomycin and Invanz for antibiotic treatment Due to his penicillin allergy infectious disease should be consulted for additional antimicrobial coverage Transfer to higher level of care due to the complexity of care likely to be required for this patient. He does not appear to be septic. Discussion was held with Dr. Chaudhry from [facility] who has accepted the patient in transfer
[2017-02-13 05:22] LABS: % IMMATURE GRANULYOCYTES 0.4 % (0.0-1.1); ABSOLUTE IMMATURE GRANULOCYTES 0.04 10^3/uL (0.00-0.10); ADD DIFF? NO; ADD MORPH? NO; ADD SCAN? YES; ATYPICAL LYMPHOCYTE FLAG 0 (0-99); FRAGMENT RBC FLAG 0 (0-99); LIPEMIA HEMOLYSIS FLAG 90 (0-99); MEAN CELL HEMOGLOBIN 31.1 pg (27.9-34.1); MEAN CELL HEMOGLOBIN CONCENTR. 35.5 g/dL (32.4-36.7); MEAN CELL VOLUME 87.6 fL (81.5-99.8); PLATELET CLUMPS FLAG 20 (0-99); PLATELET COUNT 265 10^3/uL (150-400); RED BLOOD CELL COUNT 3.54 10^6/uL (4.40-6.38); RED CELL DISTRIBUTION WIDTH 13.6 % (11.5-15.2)
[2017-02-13 05:34] LABS: LEFT SHIFT FLG 300 (0-99)
[2017-02-13] MEDS ORDERED: CLINDAMYCIN 900 MG/DEXTROSE 50 ML IV SCH (06:00)
[2017-02-13 06:35] LABS: SCAN POSITIVE
[2017-02-13 06:39] LABS: PLATELET ESTIMATE ADEQUATE (ADEQ)
--- NOTE | 2017-02-13 07:16 | GDS ---
[f rep st] DISCHARGE SUMMARY DISCHARGE DIAGNOSES: Include: 1. Suspected necrotizing fasciitis. 2. Hyponatremia. 3. Leukocytosis. HISTORY OF PRESENT ILLNESS: This is a 46-year-old homeless male, who presents with complaints of ri ght-sided leg pain status post a mechanical fall from a skateboard 2 days previous. For details of the patient's initial presentation, please see the history and physical dated 02/12/2017. CONSULTATIVE SERVICES: Include general surgery. PROCEDURES: Include MRI of the lower extremity. MRI shows findings consistent with fluid associate d with the hamstring tendons and deep tissues. HOSPITAL COURSE BY ISSUE: 1. Suspected necrotizing fasciitis. Patient admitted with complaints of a painful leg, was noted t o have circumferential changes consistent with cellulitis, hyponatremia, leukocytosis concerning for possible necrotizing fasciitis. Imaging confirmed deep tendinous fluid collections consistent with tendinitis. General Surgery evaluated the patient and felt the patient was much safer receiving im mediate surgical intervention at [facility]. Patient was emergently transported from [facility] t [facility] to the surgical services for debridement and appropriate wound care, which our surgeon felt could not be provided at [facility]. The patient was treated with vancomycin, clindamycin, and ertape nem during his short stay here at [facility]. 2. Sepsis secondary to presumed necrotizing fasciitis. Patient received empiric antibiotics, aggre ssive fluid resuscitation. Blood cultures are pending at the time of disposition. MEDICATIONS AT THE TIME OF DISCHARGE: The patient was transferred on 3 antibiotic agents and pain m edications. FOLLOWUP APPOINTMENTS: Include immediate surgical debridement by [facility]. PENDING STUDIES: At the time of this patient's transfer include blood cultures that were obtained i n the emergency department. /[id number]/MODL
[2017-02-13] MEDS ORDERED: ERTAPENEM 1 GM in NS 100 ML IV SCH (09:00)
[2017-02-13] MEDS ORDERED: ENOXAPARIN 40 MG/0.4 ML SYR SC SCH (09:00)
[2017-02-13] MEDS ORDERED: VANCOMYCIN 1.25 GM in D5W 250 ML IV SCH (12:30)
== END 2017-02-13 04:45 | disposition short-term general hospital (02) | DRG 871 ==
LOC: OBSVTOIN 23:43 → F3E 02-13 02:47
PROVIDERS: ADMIT Hospitalist; ATTEND Hospitalist
DX: A41.89 Other specified sepsis (principal); M72.6 Necrotizing fasciitis; L03.115 Cellulitis of right lower limb; E87.1 Hypo-osmolality and hyponatremia; D72.829 Elevated white blood cell count, unspecified; M16.11 Unilateral primary osteoarthritis, right hip; Z59.0 Homelessness
CPT/HCPCS: 96374; A9585; J1170; J1335; J2405; J3370

== ENCOUNTER 2017-03-09 15:33 | Emergency (ER) | payer MEDICAID ==
--- NOTE | 2017-03-09 16:14 | EDPHY ---
H & P Stated Complaint: Skin graft to left thigh 4 days ago - dressing "has become loose". Source: Patient - Personal History Current Tetanus Diphtheria and Acellular Pertussis (TDAP): Yes Tetanus Vaccine Date: 2011 - Medical/Surgical History Hx Asthma: No Hx Chronic Respiratory Disease: No Hx Diabetes: No Hx Cardiac Disease: No Hx Renal Disease: No Hx Cirrhosis: No Hx Alcoholism: No Hx HIV/AIDS: No Hx Splenectomy or Spleen Trauma: No Other PMH: ORIF L ankle . Left ankle infection December 2016. Skate -boarding accident to right hip January 2017. - Social History Smoking Status: Heavy smoker Time Seen by Provider: 03/09/17 15:53 HPI/ROS: CHIEF COMPLAINT: Wound check HISTORY OF PRESENT ILLNESS: This is a 46-year-old male presenting to the emergency department reports needing to have his wound dressing evaluated, he thinks the dressing has become loose. Denies any other complaints. Patient was initially seen here on 02/13 transfer to [facility] for necrotizing fasciitis, patient had surgical intervention at that time skin removal on left thigh with skin grafting from right thigh. Patient's states the skin looks good finished all antibiotic, he was just concerned that the dressing on his left thigh was getting loose. No redness no fever. Ambulatory REVIEW OF SYSTEMS: Constitutional: No fever, no chills. Eyes: No discharge. No blurred vision ENT: No sore throat. Cardiovascular: No chest pain, no palpitations. Respiratory: No cough, no shortness of breath. Gastrointestinal: No abdominal pain, no vomiting. Genitourinary: No hematuria. Musculoskeletal: No back pain. Left thigh pain, right eye pain Skin: No rashes. Neurological: No headache. (Jessica Sotelo) - Physical Exam Exam: General Appearance: Alert, no distress. HEENT: Pupils equal and round no pallor or injection. Mucous membranes moist. Respiratory: There are no retractions, lungs are clear to auscultation. Cardiovascular: Regular rate and rhythm. Gastrointestinal: Abdomen is soft and nontender Neurological: No focal deficits ambulatory with antalgic gait Skin: Warm and dry, no rashes. Musculoskeletal: Neck is supple nontender. Extremities: Left dressing noted to left thigh no red streaks no erythema surrounding dressing. Dressing intact. Limited range of motion most likely due to pain. Positive CMS intact Psychiatric: Patient is oriented X 3, acting appropriately (Jessica Sotelo) Constitutional: Initial Vital Signs Temperature (C) 37 C 03/09/17 15:34 Heart Rate 122 H 03/09/17 15:34 Respiratory Rate 18 03/09/17 15:34 Blood Pressure 134/83 H 03/09/17 15:34 O2 Sat (%) 95 03/09/17 15:34 O2 Delivery Mode Room Air Allergies/Adverse Reactions: Penicillins Allergy (Unknown, Verified 12/22/16 17:33) Home Medications: Medication Instructions Recorded Elavil 12/22/16 GABAPENTIN 12/22/16 Amitriptyline HCl 03/09/17 morphINE 03/09/17 oxyCODONE CR 03/09/17 oxyCODONE IR [Oxycodone Ir (*)] 10 mg PO Q4-6PRN PRN #10 tab 03/09/17 Medical Decision Making ED Course/Re-evaluation: Discussed ED plan of care: Dressing evaluation---> intact, no erythema noted no discharge pus noted. Discussed following up with surgery at [facility] on your scheduled appointment Sunday. If at any point time you feel that your noticing red streaks fever or pus or infection to the wound return to the emergency department. I have also given you a prescription for few pain medicines until your appointment on Sunday. Discharge home---> stable, discussed discharge instructions (Jessica Sotelo) Differential Diagnosis: Other differential diagnosis considered but not limited to cellulitis, lymphangitis, and sepsis (Jessica Sotelo) Other Provider: The patient was evaluated and managed by the Physician Design Agent/ Nurse Practitioner. I discussed the patient's presentation and course with the midlevel provider with them and agree with the evaluation. My co-signature indicates that I have reviewed this chart and I agree with the findings and plan of care as documented. I am the secondary supervising physician. (Risa Adorno) Departure - Departure Disposition: Home, Routine, Self-Care Clinical Impression: Encounter for post surgical wound check Condition: Good Instructions: Acute Wounds (ED) Additional Instructions: 1. Do not remove dressing. This dressing will be removed in wound will be evaluated on your appointment on Sunday at [facility] 2. Monitor for any spread of the redness red streaks fever if this should occur return to the ER 3. Also given you a prescription for additional pain medicine until your appointment on Sunday Referrals: NONE *PRIMARY CARE P,. [Primary Care Provider] - As per Instructions [facility],. [Clinic] - As per Instructions Prescriptions: oxyCODONE IR [Oxycodone Ir (*)] 10 mg PO Q4-6PRN PRN #10 tab PRN Reason: Pain, Moderate
[2017-03-09 16:20] VITALS: BP 136/90; PULSE 102; RESP 20; TEMP 99; O2SAT 97
== END 2017-03-09 16:25 | disposition home or self-care (01) ==
DX: Z48.01 Encounter for change or removal of surgical wound dressing (principal); F17.200 Nicotine dependence, unspecified, uncomplicated

== ENCOUNTER 2017-03-23 15:35 | Emergency (ER) | payer MEDICAID ==
[2017-03-23 15:42] VITALS: RESP 16
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
[2017-03-23 16:39] VITALS: BP 128/78; PULSE 90; TEMP 97.5; O2SAT 96
== END 2017-03-23 16:46 | disposition home or self-care (01) ==
LOC: EDUNIT#
DX: Z94.5 Skin transplant status (principal); F17.200 Nicotine dependence, unspecified, uncomplicated

== ENCOUNTER 2017-08-21 11:06 | Emergency (ER) | payer MEDICAID ==
[2017-08-21 11:15] VITALS: BP 137/85; PULSE 92; RESP 17; TEMP 97.5; O2SAT 97
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
--- NOTE | 2017-08-21 12:22 | ASDISCHSUM ---
Discharge Information Plan Status:Home with No Needs Medically Cleared to Leave: Discharge Date:08/21/2017 12:05 PM CM D/C Disposition:Home, Routine, Self-Care ADT D/C Disposition:Home, Routine, Self-Care Projected Discharge Date:08/21/2017 12:05 PM Transportation at D/C:Self Discharge Delay Reason: Follow-Up Date:08/21/2017 12:05 PM Discharge Slot: Final Diagnosis: Placement Information Patient Contact Information Contact Name:OLGA Relationship:Mother Address:[address] City:[place] [facility] Code:[place] [address] Email: Financial Information Financial Class: Primary Plan 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 Emergency dept visits in Answers: 4+ last 6 months Score: 4 Date Signed: 08/21/2017 12:06 PM Electronically Signed By:Yolanda Wallace RN [facility] Progress Note CM Note CM Note Notes: Spoke with patient and offered to fax his prescriptions to our [facility] and have them filled through his Medicaid. Patient said he didn't have time to wait and so he would take the prescriptions to his pharmacy of choice and fill them himself. Also offered to call his PCP and make a follow-up appointment for him and patient said he would appreciate if he could get an appt in the morning. This CM called Sohail Reyes (seen by Christianne George NP back in Oct 2015) and able to get patient an appointment this 08/23/17 at 10am. Called patient ([phone]) and he said he will be able to make it. Asked patient to arrive 15 min early and bring his filled prescriptions with him. Patient says he will. CM available for further assistance. Date Signed: 08/21/2017 12:19 PM Electronically Signed By:Yolanda Wallace RN Intervention Information Intervention Type:Health Clinic Date of Service:08/21/2017 12:20 PM Patient Type:Emergency Room Staff Member:HYACINTH Wallace, Yolanda Hours:0.25 Discipline:Rv Repair Technician Severity: Comment:Made an appt for patient with his PCP at [facility]. See CM note
== END 2017-08-21 12:05 | disposition home or self-care (01) ==
DX: S80.922A Unspecified superficial injury of left lower leg, initial encounter (principal); L08.9 Local infection of the skin and subcutaneous tissue, unspecified; F17.200 Nicotine dependence, unspecified, uncomplicated; W22.8XXA Striking against or struck by other objects, initial encounter; Y92.410 Unspecified street and highway as the place of occurrence of the external cause

== ENCOUNTER 2018-07-02 19:42 | Emergency (ER) | payer MEDICAID, OTHER ==
--- NOTE | 2018-07-02 20:08 | EDPHY ---
HPI/HX/ROS/PE/MDM Narrative: CHIEF COMPLAINT: Possible overdose HPI: The patient is a 47 y/o male with a history of drug use arriving via EMS today after a possible overdose. Per EMS, the patient was found down, given Narcan, and subsequently regained consciousness. After regaining consciousness he admitted to using heroin today. He reports that he "tries not to" use heroin daily, but does use it regularly. He denies any pain or prior hospitalizations. No headache, chest pain, shortness of breath, abdominal pain, urinary or bowel complaints, numbness, paresthesias, fever. REVIEW OF SYSTEMS: Aside from elements discussed in the HPI, a comprehensive 10 system review of systems is otherwise negative. PMH:Heroin use SOCIAL HISTORY: Transient, single, not employed PHYSICAL EXAM: General: Patient is drowsy but awake, in no acute distress. ENT: Eyes are normal to inspection with normal pupils. ENT inspection normal. Neck: Normal inspection. Full range of motion. Respiratory: No respiratory distress. Breath sounds normal bilaterally. Cardiovascular: Regular rate and rhythm. Strong peripheral pulses. Normal cap refill. Abdomen: The abdomen is nontender to palpation. There are no peritoneal signs. There are normal bowel sounds. Back: Normal to inspection. No tenderness to palpation. Skin: Normal color. No rash. Warm and dry. Extremities: Normal appearance. Full range of motion. Neuro: Normal motor function. Normal sensory function. ED Course: 2199: Patient is sleeping comfortably and continues to have no respiratory distress with stable vitals. 0: Patient care turned over to Dr. Saldivar at shift change. General Time Seen by Provider: 07/02/18 19:49 Initial Vital Signs: Initial Vital Signs Temperature (C) 36.8 C 07/02/18 19:52 Heart Rate 105 H 07/02/18 19:52 Respiratory Rate 16 07/02/18 19:52 Blood Pressure 136/95 H 07/02/18 19:52 O2 Sat (%) 95 07/02/18 19:52 O2 Delivery Mode Nasal Cannula O2 (L/minute) 2 Allergies/Adverse Reactions: Penicillins Allergy (Unknown, Verified 08/21/17 11:11) Home Medications: Medication Instructions Recorded Elavil 12/22/16 GABAPENTIN 12/22/16 Amitriptyline HCl 03/09/17 morphINE 03/09/17 oxyCODONE CR 03/09/17 oxyCODONE IR [Oxycodone Ir (*)] 10 mg PO Q4-6PRN PRN #10 tab 03/09/17 Cephalexin [Keflex] 500 mg PO TID 10 Days cap 08/21/17 Methadone HCl 08/21/17 Sulfamethox/Tmp 800/160 mg 1 tab PO BID@1000,2200 10 Days tab 08/21/17 [Bactrim Ds] Departure - Departure Disposition: Home, Routine, Self-Care Clinical Impression: Polysubstance abuse Condition: Good Instructions: Narcotic Abuse (ED) Additional Instructions: Please refrain from abusing heroin. Return to the emergency department immediately for fever, vomiting, confusion, headache, abdominal pain or other worsening of condition. Followup with your primary care physician within 72 hours for reevaluation. Referrals: [facility],. [Clinic] - As per Instructions Report Scribed for: Bobby Diaz Report Scribed by: Leena Good Date of Report: 07/02/18 Time of Report: 20:11 Physician Review and Approval Statement: Portions of this note were transcribed by an ED scribe. I personally performed the history, physical exam, and medical decision making; and confirm the accuracy of the information in the transcribed note.
[2018-07-03] MEDS: CHLORDIAZEPOXIDE 25MG PREPK#6 BTL TAKEHOME ONE ×4 (00:42→01:12)
[2018-07-03 01:11] VITALS: BP 132/74
== END 2018-07-03 01:08 | disposition home or self-care (01) ==
LOC: EDUNIT#
DX: F11.10 Opioid abuse, uncomplicated (principal)

== ENCOUNTER 2019-01-30 20:58 | Emergency (ER) | payer MEDICAID ==
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
[2019-01-30] MEDS ORDERED: DOXYCYCLINE HYCLATE 100 MG CAP/TAB PO ONE (21:09)
[2019-01-30] MEDS ORDERED: DOXYCYCLINE 100 MG PREPACK#2 BTL TAKEHOME ONE (21:09)
[2019-01-30 22:40] VITALS: BP 125/80
== END 2019-01-30 22:41 | disposition home or self-care (01) ==
DX: L03.115 Cellulitis of right lower limb (principal)